=== PATIENT | male | born 1970 | race Caucasian/White ===

== ENCOUNTER 2016-09-09 22:23 | Emergency (ER) | payer MEDICARE, OTHER | END 2016-09-10 02:13 | disposition home or self-care (01) | LOC: ER 22:23 | DX: F20.89 Other schizophrenia (principal); F33.3 Major depressive disorder, recurrent, severe with psychotic symptoms; Z79.899 Other long term (current) drug therapy; F17.210 Nicotine dependence, cigarettes, uncomplicated | CPT/HCPCS: 36415; 80053; 80307; 81003; 84439; 84443; 85025; 85610; 99283; G0480; 80320; 80329 ==